=== PATIENT | male | born 1960 | race Caucasian/White ===

== ENCOUNTER 2020-03-02 04:25 | Emergency (ER) | payer OTHER ==
[~2020-03-02] VITALS: Ht 170.2 cm; Wt 77.1 kg
[2020-03-02 04:27] VITALS: BP 150/90
[2020-03-02] MEDS ORDERED: ALUMINUM HYD/MAG/SIMETHICONE 30 ML UDC PO ONE (04:45)
[2020-03-02] MEDS ORDERED: LIDOCAINE VISCOUS 2% 20 ML UDC PO ONE (04:45)
[2020-03-02] MEDS ORDERED: DICYCLOMINE HCL LIQUID 10 MG/5 ML UDC PO ONE (04:45)
[2020-03-02] MEDS ORDERED: PANTOPRAZOLE 40 MG TABEC PO ONE (04:45)
[2020-03-02] MEDS ORDERED: KETOROLAC 30 MG/ML VIAL IVP ONE (05:05)
[2020-03-02] MEDS ORDERED: NACL 0.9% 500 ML IV ONE (05:05)
[2020-03-02 06:05] LABS: BASOPHILS # (AUTO) 0.1 K/uL (0.00-0.22); BASOPHILS % (AUTO) 0.7 % (0.0-2.0); EOSINOPHILS % (AUTO) 0.1 % (0.0-4.0); HEMATOCRIT 48.2 % (36-52); HEMOGLOBIN 16.5 g/dL (12.0-18.0); LYMPHOCYTES # (AUTO) 0.6 K/uL (2.0-11.5); LYMPHOCYTES % (AUTO) 6.1 % (20.5-51.1); MEAN CORPUSCULAR HEMOGLOBIN 30 pg (27-31); MEAN CORPUSCULAR HGB CONC 34 g/dL (33-37); MEAN CORPUSCULAR VOLUME 86.8 fL (80-94); MONOCYTES # (AUTO) 0.4 K/uL (0.8-1.0); MONOCYTES % (AUTO) 3.7 % (1.7-9.3); NEUTROPHILS # (AUTO) 8.5 K/uL (1.8-7.7); NEUTROPHILS % (AUTO) 89.4 % (42.2-75.2); PLATELET COUNT (AUTO) 240 K/uL (140-450); RED BLOOD CELL COUNT(AUTO) 5.55 MIL/uL (4.20-6.10); RED CELL DISTRIBUTION WIDTH 13.2 % (11.6-13.7); WHITE BLOOD COUNT (AUTO) 9.5 K/uL (4.8-10.8)
[2020-03-02] MEDS ORDERED: lisinopriL 20 MG TAB PO ONE (06:10)
[2020-03-02 06:20] LABS: ALBUMIN 4.4 g/dL (3.4-5.0); CARBON DIOXIDE 30.8 mmol/L (21-32); POTASSIUM 3.8 mmol/L (3.5-5.1); TOTAL BILIRUBIN 0.5 mg/dL (0.0-1.0)
[2020-03-02 06:59] VITALS: BP 171/91
== END 2020-03-02 06:59 | disposition home or self-care (01) ==
LOC: MED 04:25
DX: K21.9 Gastro-esophageal reflux disease without esophagitis (principal)
CPT/HCPCS: 36415; 71045; 74018; 80053; 84484; 85025; 96361; 96374; 99285; J1885; J7030; 93005